=== PATIENT | female | born 1950 | race Caucasian/White ===

== ENCOUNTER 2019-01-24 18:10 | Emergency (ER) | payer MEDICARE, OTHER ==
[~2019-01-24] VITALS: Ht 160 cm; Wt 77.1 kg
[2019-01-24] MEDS ORDERED: LEVOTHYROXINE25 MCG PO (18:24)
[2019-01-24] MEDS ORDERED: ATENOLOL25 MG PO (18:24)
[2019-01-24] MEDS ORDERED: ROSUVASTATIN CA20 MG PO (18:24)
[2019-01-24] MEDS ORDERED: MUPIROCIN1 GM TOP (18:25)
[2019-01-24] MEDS ORDERED: TRIAMCINOLONE A15 GM TOP (19:36)
== END 2019-01-24 19:46 | disposition home or self-care (01) ==
LOC: ED 18:10
DX: L23.9 Allergic contact dermatitis, unspecified cause (principal); Z87.891 Personal history of nicotine dependence; Z90.49 Acquired absence of other specified parts of digestive tract; Z90.89 Acquired absence of other organs; Z88.1 Allergy status to other antibiotic agents; Z88.6 Allergy status to analgesic agent; Z79.899 Other long term (current) drug therapy
CPT/HCPCS: 99282

== ENCOUNTER 2019-07-01 11:54 | Emergency (ER) | payer MEDICARE, OTHER ==
[~2019-07-01] VITALS: Ht 160 cm; Wt 78.0 kg
[~2019-07-01 11:54] MED LIST: ATENOLOL25 MG PO; LEVOTHYROXINE25 MCG PO; MUPIROCIN1 GM TOP; ROSUVASTATIN CA20 MG PO; TRIAMCINOLONE A15 GM TOP
--- NOTE | 2019-07-02 07:42 | EKG ---
[facility] [address] [facility] [place], [place] [address] Signed Normal sinus rhythm Low voltage QRS Borderline ECG No previous ECGs available Confirmed by SOFIA BARRAZA MD ([id number]) on 07/02/2019 7:42:10 AM Electronically Signed By: SOFIA BARRAZA MD 07/02/19 0742 PATIENT NAME: TANIKA COLEMAN Electrocardiogram DATE OF : 46 PHYSICIAN: SOFIA BARRAZA MD REPORT #: [id number] REPORT IS CONFIDENTIAL AND NOT TO BE RELEASED WITHOUT AUTHORIZATION
== END 2019-07-01 14:10 | disposition home or self-care (01) ==
LOC: ED 11:54
DX: H53.9 Unspecified visual disturbance (principal); Z87.891 Personal history of nicotine dependence; Z88.8 Allergy status to other drugs, medicaments and biological substances; Z88.1 Allergy status to other antibiotic agents; Z79.899 Other long term (current) drug therapy
CPT/HCPCS: 70450; 71045; 93005; 93010; 99285-25

== ENCOUNTER 2021-12-20 09:48 | Emergency (ER) | payer OTHER, MEDICARE ==
[~2021-12-20] VITALS: Ht 160 cm; Wt 77.1 kg
[2021-12-20] MEDS ORDERED: NEXIUM5 MG PO (10:25)
[2021-12-20] MEDS ORDERED: HYDROCODON-ACE1 EA10 PO (11:57)
== END 2021-12-20 12:29 | disposition home or self-care (01) ==
LOC: ED 09:48
DX: S92.012A Displaced fracture of body of left calcaneus, initial encounter for closed fracture (principal); S92.212A Displaced fracture of cuboid bone of left foot, initial encounter for closed fracture; Z87.891 Personal history of nicotine dependence; Z96.641 Presence of right artificial hip joint; Z88.1 Allergy status to other antibiotic agents; Z88.6 Allergy status to analgesic agent; W18.49XA Other slipping, tripping and stumbling without falling, initial encounter
CPT/HCPCS: 73610; 73700; A9270

== ENCOUNTER 2024-02-03 07:40 | Day surgery (SDC) | payer MEDICARE, OTHER ==
[2024-01-28 11:04] VITALS: BP 124/63
[~2024-02-03] VITALS: Ht 160 cm; Wt 77.7 kg
[~2024-02-03 07:40] MED LIST changes: +ADVIL200 M1 PO; +ALENDRONATE SOD70 MG PO; +CALCIUM500 M1 PO; +CLINDAMYCIN PHOSPHATE/D5W 900 MG/50 ML BAG IV SCH; +CRANBERRY400 MG PO; +EPIDIOLEX100 MG/1 M PO; +FLONASE ALLERG9.9 ML NAS; +HYDROCODON-ACE1 EA10 PO; +IBLOOD GLUCOSE TEST STRIP 1 EA TEST VI PRN; +LACTATED RINGER'S 1,000 ML IV SCH; +LIDOCAINE HCL 1% 5 ML SDV INJ ONE; +MULTI VITAMIN1 EACH PO; +NEXIUM5 MG PO; +PRILOSEC OTC20 MG PO; +TRIAMCINOLONE A15 G1 TOP; +TYLENOL325 MG PO; +ZYRTEC10 M3 PO
[2024-02-03 07:53] VITALS: BP 144/74
[2024-02-03] MEDS ORDERED: propofoL 200 MG/20 ML VIAL ONE ×2 (08:58→09:23)
[2024-02-03] MEDS ORDERED: LIDOCAINE HCL 2% 5 ML SDV ONE (08:58)
--- NOTE | 2024-02-03 10:21 | NUR ---
02/03/24 [place]1 Lou Bhatia 1006 PT TO PACU SLEEPING ORAL AIRWAY IN PLACE, PT COUGHTING UPON ENTERING PACU, ORAL AIRWAY REMOVED PT CONTINUED TO SLEEP. 1020 PT AWAKE DENIES PAIN AND NAUSEA. PT PASSING GAS.
[2024-02-03 11:00] VITALS: BP 152/75
--- NOTE | 2024-02-03 11:26 | OR ---
[facility] [address] [place], [place] [address] Signed DATE OF OPERATION: 02/03/2024 SURGEON: Jose Angel Hilton MD PREOPERATIVE DIAGNOSES: 1. Gastroesophageal reflux disease. 2. History of gastritis. 3. Personal history of colonic polyps. 4. Mom with colon cancer in her 80s. POSTOPERATIVE DIAGNOSES: 1. Moderate-sized hiatal hernia (36-31 cm). 2. GE junction at 31 cm. 3. A 5 mm polyp opposite to ileocecal valve. 4. Pbhcywr-np-envznyjn internal hemorrhoids. 5. Internal anal skin tag x1. PROCEDURES: 1. Esophagogastroduodenoscopy with CLOtest and biopsy of the antrum. 2. Colonoscopy with hot biopsy. ESTIMATED BLOOD LOSS: None. INDICATIONS: Tanika is a 73-year-old female asked to see me for both upper and lower endoscopy. She spent much of her life in [place], [place]. Her prior upper endoscopies and her three colonoscopies all came through the [facility] with the [employer] system. Unfortunately, we have none of those records in the office. Fortunately, she has a very good memory. She told me she has had polyps taken out previously. She has been on the five year plan with respect to the polyps and the fact that her mom had colon cancer in her 80s. She told me the last upper endoscopy was in 2014 at age 63. She has been on Prilosec for over 20 years. In that regard, her primary care provider wanted her to have an upper endoscopy. She told me she does have some acid reflux symptoms, which is common despite the Prilosec. She told me she has really no lower GI symptoms. In the office, I had given her a pamphlet on upper and lower endoscopy. We reviewed the nature of the two tests. There is risk including, but not limited to gas bloating, crampy abdominal pain, bleeding, perforation requiring surgery, and missed diagnosis. We also reviewed the written instructions for a bowel prep line by line. We had gone through her medications very carefully. She was going to continue all her usual medications Electronically Signed By: JOSE ANGEL HILTON MD 02/03/24 1126 PATIENT NAME: TANIKA COLEMAN OPERATIVE REPORT DATE OF : 46 REPORT #: [id number] PHYSICIAN: JOSE ANGEL HILTON MD PCP: CHANCE KILPATRICK MD REPORT IS CONFIDENTIAL AND NOT TO BE RELEASED WITHOUT AUTHORIZATION [facility] [address] [place] [id number] Signed including the inhalers. She told me she would have an adult person take her home afterwards. She understands that she has advanced age and she is very frail with a very around face with her history of asthma and COPD. Consequently, we did ask for monitored anesthesia care propofol infusion that proved to be a villagomez decision. She did undergo some preoperative blood work and an EKG. We also gave her some clindamycin for the hip replacement due to her medical allergies. She had expressed understanding and wished to proceed. DESCRIPTION OF PROCEDURE: Tanika was taken into our endoscopy suite and placed in the supine semi-recumbent position. She was given monitored anesthesia care, propofol infusion per nurse bar porter. A bite block was utilized for the case. The adult gastroscope was introduced and advanced out into the third portion of the duodenum without difficulty. The duodenum and pyloric channel were unremarkable. The entire stomach was unremarkable. We took a biopsy out of the antrum for CLOtest as well as pathologic review. Upon retroflexion of scope, we could easily see her moderate-sized hiatal hernia. It measured from 36 cm back to 31 cm. The scope had been withdrawn through the hiatal hernia and GE junction. The Z-line remains intact. There was no Handley's mucosa. There was no distal esophagitis. The middle and upper esophagus were unremarkable. After this, the gas was suctioned out and the gastroscope removed. Tanika tolerated procedure quite well. Tanika was rotated into the left lateral decubitus position. She was maintained on IV propofol per nurse bar porter. A digital rectal exam was performed and this was unremarkable. She had no external hemorrhoids. No masses noted. She has good sphincter tone. The adult colonoscope was introduced and advanced under direct visualization of camera. It took just a little bit of abdominal compression or get the scope around into the cecum itself. Her prep was quite excellent. The scope was then slowly withdrawn. She had a 5 mm polyp opposite the ileocecal valve. This was easily removed and destroyed completely with hot biopsy forceps. No other pathology throughout the entire colon or rectum. Once in the rectum, the scope had been retroflexed. She does have zopfjxy-ok-qpadygtd internal hemorrhoids. She had a one dominant internal anal skin tag. After this, the gas was suctioned out and colonoscope removed. Tanika tolerated the procedure quite well. RECOMMENDATIONS: I will see Tanika back in my office in 7 to 14 days to review her results. She is welcome to stay on the five year rotation for colonoscopy so long as her health holds up. Electronically Signed By: JOSE ANGEL HILTON MD 02/03/24 1126 PATIENT NAME: TANIKA COLEMAN OPERATIVE REPORT DATE OF : 46 REPORT #: [id number] PHYSICIAN: JOSE ANGEL HILTON MD PCP: CHANCE KILPATRICK MD REPORT IS CONFIDENTIAL AND NOT TO BE RELEASED WITHOUT AUTHORIZATION [address] [place] [address] Signed Jose Angel Hilton MD [facility] /[id number] cc: MD Jose Angel Knox MD Patient Chart Copies: JOSE ANGEL HILTON MD ~ Electronically Signed By: JOSE ANGEL HILTON MD 02/03/24 1126 PATIENT NAME: TANIKA COLEMAN OPERATIVE REPORT DATE OF : 46 REPORT #: [id number] PHYSICIAN: JOSE ANGEL HILTON MD PCP: CHANCE KILPATRICK MD REPORT IS CONFIDENTIAL AND NOT TO BE RELEASED WITHOUT AUTHORIZATION
--- NOTE | 2024-02-05 16:21 | PATH ---
[facility] [address] [facility] [place], [place] [address] Signed SPECIMEN(S): A ANTRUM/PYLORUS BIOPSY SPECIMEN(S): B PROXIMAL ASCENDING/RIGHT COLON POLYP SPECIMEN SOURCE: A. ANTRUM/PYLORUS BIOPSY B. PROXIMAL ASCENDING/RIGHT COLON POLYP CLINICAL HISTORY: History of gastritis, GERD, history of colon polyps. Hiatal hernia. FINAL PATHOLOGIC DIAGNOSIS: A. Stomach, antrum/pylorus, biopsy: - Gastric antral mucosa with no significant pathologic changes - Negative for Helicobacter pylori with HE stains B. Colon, proximal ascending/right, polypectomy: - Tubular adenoma BRP MICROSCOPIC EXAMINATION: Histologic sections of all submitted blocks are examined by light microscopy. These findings, together with the gross examination, support the pathologic diagnosis. GROSS DESCRIPTION: A. The specimen, labeled and designated "Tai, antrum biopsy," is received in formalin and consists of one nunez soft tissue fragment, 0.2 cm. Entirely submitted in (A1). B. The specimen, labeled and designated "Arnkami, proximal ascending colon polyp," is received in formalin and consists of three nunez soft tissue fragments, ranging from 0.1-0.2 cm. Entirely submitted in (B1). JS (under the direct supervision of a pathologist) The Gross Description was prepared using a voice recognition system. The report was reviewed for accuracy; however, sound-alike word errors, addition and/or deletions may occur. If there is any question about this report, please contact Client Services. ADDITIONAL NOTES: Immunohistochemical and/or in situ hybridization studies if performed in this case included appropriate positive controls that reacted as expected. This test was developed and its performance PATIENT NAME: TANIKA COLEMAN PATHOLOGY DATE OF : 46 REPORT #: [id number] PHYSICIAN: TIFFANY BECKER PCP: CHANCE KILPATRICK MD REPORT IS CONFIDENTIAL AND NOT TO BE RELEASED WITHOUT AUTHORIZATION [facility] [address] [facility] [place] [address] Signed characteristics determined by [facility]. It has not been cleared or approved by the U.S. Food and Drug Administration. The FDA has determined that such clearance or approval is not necessary. This test is used for clinical purposes. It should not be regarded as investigational or for research. [facility] is certified under the Clinical Laboratory Improvement Amendments of 1988 (CLIA) as qualified to perform high complexity clinical laboratory testing. PERFORMING LABORATORY: Technical component was performed by [facility], [address] [place] [address] (CLIA# [id number]). Professional interpretation was performed by [facility] - [address] [id number] Diagnostician: Jeffery Bellamy MD Pathologist Electronically Signed 02/05/2024 Copies: ~ PATIENT NAME: TANIKA COLEMAN PATHOLOGY DATE OF : 46 REPORT #: [id number] PHYSICIAN: TIFFANY BECKER PCP: CHANCE KILPATRICK MD REPORT IS CONFIDENTIAL AND NOT TO BE RELEASED WITHOUT AUTHORIZATION
== END 2024-02-03 11:15 | disposition home or self-care (01) ==
LOC: DS 07:40
PROVIDERS: ATTEND Colon & Rectal Surgery
PROC: 0DB68ZX Excision of Stomach, Via Natural or Artificial Opening Endoscopic, Diagnostic (ICD-10-PCS; principal; 2024-02-03 08:50)
PROC: 0DBC8ZX Excision of Ileocecal Valve, Via Natural or Artificial Opening Endoscopic, Diagnostic (ICD-10-PCS; 2024-02-03 08:50)
DX: K44.9 Diaphragmatic hernia without obstruction or gangrene (principal); K21.9 Gastro-esophageal reflux disease without esophagitis; K63.5 Polyp of colon; K64.8 Other hemorrhoids; I10 Essential (primary) hypertension; E03.9 Hypothyroidism, unspecified; M85.80 Other specified disorders of bone density and structure, unspecified site; Z80.0 Family history of malignant neoplasm of digestive organs; Z91.040 Latex allergy status
CPT/HCPCS: 36415; 87077; J2001; J2704; J3490; J7121